=== PATIENT | male | born 1990 | race Caucasian/White ===

== ENCOUNTER → 2016-12-09 | Outpatient (CLI) | payer OTHER ==
[2016-12-09 13:20] LABS: BASO % 0.2 %; BASO ABS # 0.01 K/uL (0-0.2); EOS % 0.6 %; HEMATOCRIT 46.7 % (42-52); IG% 0.5 %; LYMPH % 26.9 %; LYMPH ABS # 1.66 K/uL (1.2-3.4); MEAN PLATELET VOLUME 10.7 fL (7.4-10.4); MONO % 12.9 %; NEUT % 58.9 %; PLATELET COUNT 143 K/uL (130-400); RED BLOOD COUNT 5.25 M/uL (4.7-6.1); WHITE BLOOD COUNT 6.18 K/uL (4.8-10.8)
[2016-12-09 13:44] LABS: BLOOD UREA NITROGEN 15 mg/dl (7-18); BUN/CREATININE RATIO 13.7 (10-20); CALCIUM 9.3 mg/dl (8.5-10.1); CARBON DIOXIDE 25 mmol/L (21-32); CHLORIDE 103 mmol/L (98-107); GLUCOSE 94 mg/dl (70-99); POTASSIUM 3.8 mmol/L (3.5-5.1); SODIUM 139 mmol/L (136-145)
[2016-12-09 14:21] LABS: COMPLETE YES
== END | disposition home or self-care (01) ==
LOC: C.LAB 12:52
PROVIDERS: ATTEND Internal Medicine
DX: R06.02 Shortness of breath (principal); R00.0 Tachycardia, unspecified; R09.89 Other specified symptoms and signs involving the circulatory and respiratory systems; R94.31 Abnormal electrocardiogram [ECG] [EKG]

== ENCOUNTER 2018-06-16 16:28 | Emergency (ER) | payer OTHER ==
[~2018-06-16] VITALS: Ht 175.3 cm; Wt 108.9 kg
[2018-06-16 16:34] VITALS: TEMP 36.8; Ht 175.3 cm; Wt 108.9 kg
[2018-06-16] MEDS ORDERED: DICYCLOMINE HCL 20 MG TAB PO STA (16:51)
[2018-06-16] MEDS ORDERED: ONDANSETRON INJ 2 MG/ML 2 ML VIAL IV STA (16:51)
[2018-06-16] MEDS ORDERED: GI COCKTAIL PO STA (16:51)
[2018-06-16 17:12] LABS: BASO % 0.4 %; BASO ABS # 0.04 K/uL (0-0.2); EOS % 1.6 %; EOS ABS # 0.16 K/uL (0-0.5); HEMATOCRIT 45.1 % (42-52); HEMOGLOBIN 16.1 g/dL (14.0-18.0); IG# 0.03 K/uL (0.00-0.02); LYMPH % 17.8 %; LYMPH ABS # 1.76 K/uL (1.2-3.4); MEAN CELL VOLUME 89.8 fL (80-100); MEAN CORPUSCULAR HEMOGLOBIN 32.1 pg (25-34); MEAN CORPUSCULAR HGB CONC 35.7 g/dl (32-36); MEAN PLATELET VOLUME 11.1 fL (7.4-10.4); MONO % 9.8 %; MONO ABS # 0.97 K/uL (0.11-0.59); NEUT % 70.1 %; NEUT ABS # 6.94 K/uL (1.4-6.5); PLATELET COUNT 174 K/uL (130-400); RED CELL DISTRIBUTION WIDTH CV 12.6 % (11.5-14.5)
[2018-06-16] MEDS ORDERED: LIDOCAINE HCL 2% VISC SOLN 20 ML UDC ONE (17:13)
[2018-06-16] MEDS ORDERED: DICYCLOMINE HCL 10 MG CAP ONE (17:14)
[2018-06-16] MEDS ORDERED: ALUMINUM/MAGNESIUM SUSP 30 ML UDC ONE (17:14)
[2018-06-16 17:33] LABS: ALBUMIN 4.1 gm/dl (3.4-5.0); CALCIUM 8.9 mg/dl (8.5-10.1); CREATININE 1.08 mg/dl (0.60-1.40); POTASSIUM 3.8 mmol/L (3.5-5.1)
[2018-06-16] MEDS ORDERED: MAGNESIUM OXIDE 400 MG TAB PO STA (17:50)
[2018-06-16] MEDS ORDERED: OPTIRAY 320 IV PRN (18:15)
[2018-06-16] MEDS ORDERED: LANS15CA6 PO (18:39)
--- NOTE | 2018-06-16 18:48 | DIAGNOSTIC IMAGING REPORT ---
CT ABD/PELVIS IV CONTRAST ONLY CLINICAL HISTORY: Abdominal pain and diarrhea DELEON'S ESOPHAGUS COMPARISON STUDY: None. TECHNIQUE: Following the IV administration of 91 mL of Optiray-320, CT scan of the abdomen and pelvis was performed from the lung bases to the proximal femurs. Images are reviewed in the axial, sagittal, and coronal planes. IV contrast was administered without complication. A dose lowering technique was utilized adhering to the principles of ALARA. CT DOSE: 770.75 mGy.cm FINDINGS: Lower chest: There is a tiny hiatal hernia. There are no pleural effusions. There is no basilar parenchymal consolidation. Liver: There is minimal hepatic steatosis. There are no focal hepatic masses. There is no ductal dilatation. Gallbladder: Unremarkable. Spleen: The spleen is enlarged measuring 16.6 cm. Pancreas: Unremarkable. Adrenal glands: Unremarkable. Kidneys: There is symmetric renal cortical enhancement. The kidneys are normal in size without hydronephrosis. Bowel: There are no transition zones indicate bowel obstruction. The appendix appears normal. There is no acute diverticulitis. There is no pathologic bowel wall thickening. Peritoneum: There is no intraperitoneal free air or abdominal ascites. Vasculature: The abdominal aorta is normal in course and caliber. Adenopathy: There is mild nonspecific mesenteric lymphadenopathy. This could be infectious, inflammatory, or neoplastic. A 3-6 month follow-up CT scan should be considered given the nonspecificity of this finding. Pelvic viscera: The bladder, and pelvic viscera are unremarkable. Skeletal structures: No destructive osseous lesions are seen. IMPRESSION: 1. No evidence of bowel obstruction. No evidence of free air 2. Normal appendix. No evidence of acute diverticulitis. 3. Nonspecific mesenteric lymphadenopathy and splenomegaly (16.6 cm). Given the nonspecificity of this finding, clinical correlation and 3-6 month follow-up CT scanning should be considered. Electronically signed by: Ozzy Bowser M.D. 06/16/2018 6:47 PM Dictated Date/Time: 06/16/2018 6:38 PM
--- NOTE | 2018-06-16 19:16 | EMERGENCY ROOM VISIT NOTE ---
History Report prepared by Frida: Pebbles Medley Under the Supervision of: Dr. Dominick Childress M.D. First contact with patient: 16:36 Chief Complaint: ABDOMINAL PAIN Stated Complaint: STOMACH PAIN, BLOATING FOR 3 WEEKS,DIARHHEA History of Present Illness The patient is a 28 year old white male with a history of indigestion and heartburn who presents to the ED with a cc of intermittent abdominal pain beginning 3 weeks ago. He notes the pain is a tightness that worsens after he eats, and nothing improves his symptoms. The patient describes the pain as a tightness. He reports he has not had a solid bowel movement since his symptoms began 3 weeks ago, and that his diarrhea is entirely water in the mornings. The patient notes he is peeing less than usual. He states he has a long history of indigestion and heartburn, and his symptoms have never felt like this. The patient notes he takes Prevacid daily. He states he has been eating more vegetables recently, but has had no other recent dietary changes. The patient reports he still has his gallbladder. He denies recent travel or antibiotic use. The patient notes he has experienced some unintentional weight loss since his symptoms began. Source of History: patient Onset: 3 weeks ago Position: abdomen Quality: other (tightness) Timing: intermittent Modifying Factors (Worsening): eating Associated Symptoms: + diarrhea Note: Associated symptom: peeing less frequently Review of Systems See HPI for pertinent positives and negatives. A total of ten systems were reviewed and were otherwise negative. Past Medical & Surgical Medical Problems: (1) Digestive problems Surgical Problems: (1) Hx of wisdom tooth extraction Family History FHx: diabetes mellitus FHx: hypertension Social History Smoking Status: Never Smoker Smokeless Tobacco Use: No Alcohol Use: none Marital Status: in relationship Housing Status: lives with family Occupation Status: employed Current/Historical Medications Scheduled Lansoprazole (Prevacid), 15 MG PO BID Allergies Coded Allergies: No Known Allergies (Unverified , 06/16/18) Physical Exam Vital Signs Date Time Temp Pulse Resp B/P (MAP) Pulse Ox O2 Delivery O2 Flow Rate FiO2 06/16/18 19:46 76 16 123/76 98 06/16/18 18:30 80 18 148/82 99 Room Air 06/16/18 16:34 36.8 86 18 144/84 98 Room Air Physical Exam GENERAL: Awake, alert, well-appearing, NAD HENT: Normocephalic, atraumatic. EYES: Normal conjunctiva. Sclera non-icteric. PERRL. No anisocoria. NECK: Supple. No nuchal rigidity. FROM. RESPIRATORY: CTAB, no rhonchi, wheezing, crackles CARDIAC: RRR, no MRG ABDOMEN: Soft, NTND, BS+. mild epigastric discomfort, no peritonitic. Negative obturators, negative psoas. MSK: No chest wall TTP, no LE edema NEURO: GCS 15, CN 2-12 intact, moves all 4s on command SKIN: No rash or jaundice noted. Medical Decision & Procedures ER Provider Diagnostic Interpretation: Radiology results as stated below per my review and radiologist interpretation: CT ABD/PELVIS IV CONTRAST ONLY CLINICAL HISTORY: Abdominal pain and diarrhea DELEON'S ESOPHAGUS COMPARISON STUDY: None. TECHNIQUE: Following the IV administration of 91 mL of Optiray-320, CT scan of the abdomen and pelvis was performed from the lung bases to the proximal femurs. Images are reviewed in the axial, sagittal, and coronal planes. IV contrast was administered without complication. A dose lowering technique was utilized adhering to the principles of ALARA. CT DOSE: 770.75 mGy.cm FINDINGS: Lower chest: There is a tiny hiatal hernia. There are no pleural effusions. There is no basilar parenchymal consolidation. Liver: There is minimal hepatic steatosis. There are no focal hepatic masses. There is no ductal dilatation. Gallbladder: Unremarkable. Spleen: The spleen is enlarged measuring 16.6 cm. Pancreas: Unremarkable. Adrenal glands: Unremarkable. Kidneys: There is symmetric renal cortical enhancement. The kidneys are normal in size without hydronephrosis. Bowel: There are no transition zones indicate bowel obstruction. The appendix appears normal. There is no acute diverticulitis. There is no pathologic bowel wall thickening. Peritoneum: There is no intraperitoneal free air or abdominal ascites. Vasculature: The abdominal aorta is normal in course and caliber. Adenopathy: There is mild nonspecific mesenteric lymphadenopathy. This could be infectious, inflammatory, or neoplastic. A 3-6 month follow-up CT scan should be considered given the nonspecificity of this finding. Pelvic viscera: The bladder, and pelvic viscera are unremarkable. Skeletal structures: No destructive osseous lesions are seen. IMPRESSION: 1. No evidence of bowel obstruction. No evidence of free air 2. Normal appendix. No evidence of acute diverticulitis. 3. Nonspecific mesenteric lymphadenopathy and splenomegaly (16.6 cm). Given the nonspecificity of this finding, clinical correlation and 3-6 month follow-up CT scanning should be considered. Electronically signed by: Ozzy Bowser M.D. 06/16/2018 6:47 PM Dictated Date/Time: 06/16/2018 6:38 PM Laboratory Results 06/16/18 17:00 Red Blood Count 5.02, Mean Corpuscular Volume 89.8, Mean Corpuscular Hemoglobin 32.1, Mean Corpuscular Hemoglobin Concent 35.7, Mean Platelet Volume 11.1, Neutrophils (%) (Auto) 70.1, Lymphocytes (%) (Auto) 17.8, Monocytes (%) (Auto) 9.8, Eosinophils (%) (Auto) 1.6, Basophils (%) (Auto) 0.4, Neutrophils # (Auto) 6.94, Lymphocytes # (Auto) 1.76, Monocytes # (Auto) 0.97, Eosinophils # (Auto) 0.16, Basophils # (Auto) 0.04 06/16/18 17:00 Test 06/16/18 17:00 White Blood Count 9.90 K/uL (4.8-10.8) Red Blood Count 5.02 M/uL (4.7-6.1) Hemoglobin 16.1 g/dL (14.0-18.0) Hematocrit 45.1 % (42-52) Mean Corpuscular Volume 89.8 fL (80-100) Mean Corpuscular Hemoglobin 32.1 pg (25-34) Mean Corpuscular Hemoglobin Concent 35.7 g/dl (32-36) Platelet Count 174 K/uL (130-400) Mean Platelet Volume 11.1 fL (7.4-10.4) Neutrophils (%) (Auto) 70.1 % Lymphocytes (%) (Auto) 17.8 % Monocytes (%) (Auto) 9.8 % Eosinophils (%) (Auto) 1.6 % Basophils (%) (Auto) 0.4 % Neutrophils # (Auto) 6.94 K/uL (1.4-6.5) Lymphocytes # (Auto) 1.76 K/uL (1.2-3.4) Monocytes # (Auto) 0.97 K/uL (0.11-0.59) Eosinophils # (Auto) 0.16 K/uL (0-0.5) Basophils # (Auto) 0.04 K/uL (0-0.2) RDW Standard Deviation 41.0 fL (36.4-46.3) RDW Coefficient of Variation 12.6 % (11.5-14.5) Immature Granulocyte % (Auto) 0.3 % Immature Granulocyte # (Auto) 0.03 K/uL (0.00-0.02) Urine Color YELLOW Urine Appearance CLEAR (CLEAR) Urine pH 5.0 (4.5-7.5) Urine Specific Hoople 1.023 (1.000-1.030) Urine Protein NEG (NEG) Urine Glucose (UA) NEG (NEG) Urine Ketones NEG (NEG) Urine Occult Blood NEG (NEG) Urine Nitrite NEG (NEG) Urine Bilirubin NEG (NEG) Urine Urobilinogen NEG (NEG) Urine Leukocyte Esterase NEG (NEG) Anion Gap 5.0 mmol/L (3-11) Est Creatinine Clear Calc Drug Dose 121.7 ml/min Estimated GFR () 106.2 Estimated GFR (Non- 91.6 BUN/Creatinine Ratio 8.1 (10-20) Calcium Level 8.9 mg/dl (8.5-10.1) Magnesium Level 1.7 mg/dl (1.8-2.4) Total Bilirubin 0.4 mg/dl (0.2-1) Direct Bilirubin 0.2 mg/dl (0-0.2) Aspartate Amino Transf (AST/SGOT) 18 U/L (15-37) Alanine Aminotransferase (ALT/SGPT) 31 U/L (12-78) Alkaline Phosphatase 97 U/L (45-117) Total Protein 7.0 gm/dl (6.4-8.2) Albumin 4.1 gm/dl (3.4-5.0) Lipase 91 U/L (73-393) Laboratory results reviewed by me Medications Administered Medications (Trade) Dose Ordered Sig/Otis Route Start Time Stop Time Status Last Admin Dose Admin Ondansetron HCl (Zofran Inj) 4 mg NOW STAT IV 06/16/18 16:51 06/16/18 16:53 DC 06/16/18 17:17 4 MG Lidocaine HCl (Viscous Lidocaine 2% Soln) 20 ml STK-MED ONCE .ROUTE 06/16/18 17:13 06/16/18 17:14 DC 06/16/18 17:18 20 ML Al Hydroxide/Mg Hydroxide (Maalox Susp) 30 ml STK-MED ONCE .ROUTE 06/16/18 17:14 06/16/18 17:15 DC 06/16/18 17:18 30 ML Dicyclomine HCl (Bentyl Cap) 20 mg STK-MED ONCE .ROUTE 06/16/18 17:14 06/16/18 17:15 DC 06/16/18 17:17 20 MG Magnesium Oxide (Mag-Ox Tab) 800 mg ONE STAT PO 06/16/18 17:50 06/16/18 17:51 DC 06/16/18 18:25 800 MG ED Course 1644: The patient was evaluated in room A4B. A complete history and physical exam was performed. 180: Upon reexamination, the patient was resting. I discussed the test results and treatment plan with him. Medical Decision Nursing notes reviewed. Ancillary studies and prior records reviewed. The patient is a 28 year old white male with a history of indigestion and heartburn who presents to the ED with a cc of intermittent abdominal pain beginning 3 weeks ago. Etiologies such as appendicitis, diverticulitis, PUD, biliary pathology, UTI, pancreatitis, obstruction, mesenteric ischemia, aortic pathology, infections, inflammatory bowel disease, renal colic, as well as others were entertained. Patient was seen and evaluated the bedside. Patient does state that he has had what he describes of increased colonic transit with associated diarrhea only in the mornings. Patient denies any history of IBD or IBS. Patient states he has not been constipated. Patient states he has tried some dietary changes to see if anything may have precipitated this. Patient denies any sick contacts, recent travel, or recent antibiotic use. The patient does complain of some mild epigastric discomfort. On exam he is soft and nontender. Patient did have blood work completed. Patient also had a urinalysis. Patient' s work and urinalysis were fairly unremarkable. The patient did have mildly low magnesium which was repleted. I discussed with the patient with the patient was still very concerned. The patient did have a CT of the abdomen pelvis completed and stool studies were also sent. Patient CT the abdomen pelvis did show enlarged mesenteric lymphadenopathy with associated splenomegaly. The patient does not complain of any sore throat or cough less likely mononucleosis. The patient has a normal platelet count normal blood counts. I do not believe he currently has a known hematologic disorder. Patient was told of these findings and was told he will need PCP and discuss a repeat CT scan for surveillance in 3-6 months. Patient was also told he would need to follow-up with his PCP in order to obtain a gastroenterology referral. Patient was given strict follow-up, discharge, and return precautions. All questions were answered. Patient was deemed suitable for outpatient follow-up at this time. Patient agreed with the plan of care and was safely discharged home. Medication Reconcilliation Current Medication List: was personally reviewed by me Blood Pressure Screening Patient's blood pressure: Elevated blood pressure Blood pressure disposition: Referred to PCP Impression Primary Impression: Abdominal pain Additional Impressions: Splenomegaly Mesenteric lymphadenopathy Hypomagnesemia Scribe Attestation The scribe's documentation has been prepared under my direction and personally reviewed by me in its entirety. I confirm that the note above accurately reflects all work, treatment, procedures, and medical decision making performed by me. Departure Information Dispostion Home / Self-Care Referrals Mackenzie Paulino M.D. (PCP) Forms HOME CARE DOCUMENTATION FORM, IMPORTANT VISIT INFORMATION Patient Instructions Abdominal Pain, My [facility] Additional Instructions Please return to the emergency department if you have worsening or recurrent symptoms not amenable to at-home treatment. Please call for a follow-up appointment with her primary care physician. Please take your medications as prescribed. If you have other concerns and/or complaints please feel free to also call your primary care physician's office or return the ED for further evaluation, management, and treatment. You may take 600 mg Ibuprofen every 6 hours as needed for pain/fever with food unless told by your physician not to take NSAIDs. You may take tylenol 650 mg every 6 hours as needed for pain/fever unless told by your physician to not take it or have liver problems. You may take motrin and tylenol separately or at the same time. Take your medications as prescribed. Please follow-up with your primary care physician and discussed gastroenterology follow-up giving her prior history of Deleon's esophagus. Please discussed with your PCP about obtaining a repeat CT scan of the abdomen and pelvis given your nonspecific lymphadenopathy and splenomegaly. You have been examined and treated today on an emergency basis only. This is not a substitute for, or an effort to provide, complete comprehensive medical care. It is impossible to recognize and treat all injuries or illnesses in a single emergency department visit. It is therefore important that you follow up closely with [facility], your PCP, and/or your specialist(s). Call as soon as possible for an appointment. Thank you for your time and consideration. I look forward to speaking with you again soon. Please don't hesitate to call us if you have any questions. Problem Qualifiers Primary Impression: Abdominal pain Abdominal location: epigastric Qualified Codes: R10.13 - Epigastric pain
[2018-06-16 19:46] VITALS: BP 123/76; PULSE 76; O2SAT 98
== END 2018-06-16 19:46 | disposition home or self-care (01) ==
LOC: C.EDB 16:30 → C.EDA 19:46
DX: R10.13 Epigastric pain (principal); R16.1 Splenomegaly, not elsewhere classified; I88.0 Nonspecific mesenteric lymphadenitis; E83.42 Hypomagnesemia